=== PATIENT | male | born 1990 ===

== ENCOUNTER 2018-09-08 18:18 | Emergency (ER) | payer SELFPAY ==
--- NOTE | 2018-09-08 19:08 | XRay Report ---
CHEST 2 VIEWS INDICATION / CLINICAL INFORMATION: chest pain. COMPARISON: None available. FINDINGS: SUPPORT DEVICES: None. HEART / MEDIASTINUM: No significant abnormality. LUNGS / PLEURA: No significant pulmonary or pleural abnormality. No pneumothorax. ADDITIONAL FINDINGS: No significant additional findings. IMPRESSION: 1. No significant abnormality. Signer Name: Natasha Dobbins MD Signed: 09/08/2018 7:04 PM Workstation Name: [id number]
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
[2018-09-09 00:13] VITALS: BP 135/90
== END 2018-09-08 20:49 | disposition home or self-care (01) ==
LOC: ED 18:18
DX: R07.81 Pleurodynia (principal); R03.0 Elevated blood-pressure reading, without diagnosis of hypertension; E11.9 Type 2 diabetes mellitus without complications; M54.5 Low back pain; F17.200 Nicotine dependence, unspecified, uncomplicated; F12.10 Cannabis abuse, uncomplicated; Z79.1 Long term (current) use of non-steroidal anti-inflammatories (NSAID); Z79.899 Other long term (current) drug therapy
CPT/HCPCS: 71046

== ENCOUNTER 2020-07-11 22:37 | Emergency (ER) | payer SELFPAY ==
[2020-07-12 00:42] LABS: Basophils # (Auto) 0.1 K/mm3 (0.0-0.1); Basophils % (Auto) 0.8 % (0.0-1.8); Eosinophils # (Auto) 0.3 K/mm3 (0.0-0.4); Eosinophils % (Auto) 3.9 % (0.0-4.3); Hematocrit 41.7 % (35.5-45.6); Hemoglobin 14.4 gm/dl (11.8-15.2); Lymphocytes # (Auto) 2.7 K/mm3 (1.2-5.4); Lymphocytes % (Auto) 30.5 % (13.4-35.0); Mean Corpuscular HGB Conc 35 % (32-34); Mean Corpuscular Volume 84 fl (84-94); Monocytes # (Auto) 0.7 K/mm3 (0.0-0.8); Monocytes % (Auto) 7.6 % (0.0-7.3); Platelet Count 288 K/mm3 (140-440); Red Blood Count 4.95 M/mm3 (3.65-5.03); Red Cell Distribution Width 14.4 % (13.2-15.2)
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
--- NOTE | 2020-07-12 00:54 | XRay Report ---
CHEST 1 VIEW 0002 INDICATION / CLINICAL INFORMATION: chest pain COMPARISON: None currently available FINDINGS: SUPPORT DEVICES: None HEART / MEDIASTINUM: No significant abnormality. LUNGS / PLEURA: No significant pulmonary or pleural abnormality. No pneumothorax. ADDITIONAL FINDINGS: No significant additional findings. IMPRESSION: No significant acute abnormality Signer Name: Hossein Cowan MD Signed: 07/12/2020 12:50 AM Workstation Name: [id number]
[2020-07-12 00:58] LABS: Albumin 4.2 g/dL (3.9-5); Calcium 9.5 mg/dL (8.4-10.2)
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
[2020-07-12 13:54] LABS: Bilirubin,Urine NEG (Negative); Blood,Urine SM (Negative); Color,Urine Yellow (Yellow); Hyaline Casts,Urine 28 /LPF; Mucus,Urine 1+ /HPF
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
[2020-07-12 15:04] VITALS: BP 141/100
--- NOTE | 2020-07-14 10:30 | Electrocardiograph Report ---
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
== END 2020-07-12 15:30 | disposition home or self-care (01) ==
LOC: ED 22:37
DX: S16.1XXA Strain of muscle, fascia and tendon at neck level, initial encounter (principal); S00.83XA Contusion of other part of head, initial encounter; S09.90XA Unspecified injury of head, initial encounter; E11.40 Type 2 diabetes mellitus with diabetic neuropathy, unspecified; N28.9 Disorder of kidney and ureter, unspecified; R07.89 Other chest pain; F17.200 Nicotine dependence, unspecified, uncomplicated; E11.9 Type 2 diabetes mellitus without complications; F12.90 Cannabis use, unspecified, uncomplicated; Z79.899 Other long term (current) drug therapy; Z98.890 Other specified postprocedural states; Y08.89XA Assault by other specified means, initial encounter; Y93.89 Activity, other specified; Y92.89 Other specified places as the place of occurrence of the external cause; Y99.8 Other external cause status
CPT/HCPCS: 36415; 70450; 70486; 71045; 72125; 80053; 81001; 84484; 85025; 85379; 87086; 93005

== ENCOUNTER 2021-03-23 18:46 | Emergency (ER) | payer SELFPAY ==
--- NOTE | 2021-03-23 19:35 | Event Note ---
ED Screening Note Date of service: 03/23/21 Time: 19:32 ED Screening Note: Patient presents with fatigue, headache, body aches and chills, and right toe pain History of diabetes and amputation of the right great toe Also states history of hypertension, however he is not taking meds as prescribed This initial assessment/diagnostic orders/clinical plan/treatment(s) is/are subject to change based on patients health status, clinical progression and re- assessment by fellow clinical providers in the ED. Further treatment and workup at subsequent clinical providers discretion. Patient/guardian urged not to elope from the ED as their condition may be serious if not clinically assessed and man aged. Initial orders include: Labs
--- NOTE | 2021-03-23 20:26 | XRay Report ---
Right foot, 3 views HISTORY: History of diabetes and amputation COMPARISON: None FINDINGS: Prior amputation changes of the great toe at the proximal phalanx. The cortical margins harry ear relatively well-preserved. No aggressive cortical destruction. Mild first MTP arthritis. No acute fracture. There is soft tissue swelling of the great toe stump. No soft tissue gas. Scattered vascul ar calcifications. IMPRESSION: Prior amputation with soft tissue swelling of the great toe. No osseous destructive cordova es to suggest osteomyelitis. Signer Name: Diaz Walter MD Signed: 03/23/2021 8:22 PM Workstation Name: [id number]
[2021-03-23 21:14] LABS: Alanine Aminotransferase 20 units/L (7-56); Albumin 4.1 g/dL (3.9-5); BUN/Creatinine Ratio 13; Blood Urea Nitrogen 10 mg/dL (9-20); Hemolysis Index 15
[2021-03-23 21:35] LABS: Basophils # (Auto) 0.1 K/mm3 (0.0-0.1); Basophils % (Auto) 0.8 % (0.0-1.8); Eosinophils # (Auto) 0.1 K/mm3 (0.0-0.4); Eosinophils % (Auto) 1.3 % (0.0-4.3); Hemoglobin 12.5 gm/dl (11.8-15.2); Lymphocytes % (Auto) 27.8 % (13.4-35.0); Mean Corpuscular HGB Conc 32 % (32-34); Mean Corpuscular Volume 82 fl (84-94); Monocytes # (Auto) 0.5 K/mm3 (0.0-0.8); Platelet Count 343 K/mm3 (140-440); Red Blood Count 4.73 M/mm3 (3.65-5.03); Red Cell Distribution Width 13.9 % (13.2-15.2)
[2021-03-23] MEDS ORDERED: KETOROLAC 30 MG/1 ML INJ IV ONE (21:38)
[2021-03-23] MEDS ORDERED: SULFAMETHOXAZOLE/TRIMETHOPRIM 800/160MG DS TAB PO ONE (21:38)
[2021-03-23] MEDS ORDERED: SODIUM CHLORIDE 0.9% 1000 ML 1,000 ML IV ONE (21:38)
[2021-03-23] MEDS ORDERED: CLINDAMYCIN 300 MG CAP PO ONE (21:38)
[2021-03-23] MEDS ORDERED: ONDANSETRON 4 MG/2 ML INJ IV ONE (21:39)
--- NOTE | 2021-03-23 22:10 | XRay Report ---
CHEST 1 VIEW 03/23/2021 9:54 PM INDICATION / CLINICAL INFORMATION: cough. COMPARISON: 07/12/2020 FINDINGS: SUPPORT DEVICES: None. HEART / MEDIASTINUM: No significant abnormality. LUNGS / PLEURA: No significant pulmonary or pleural abnormality. No pneumothorax. ADDITIONAL FINDINGS: No significant additional findings. IMPRESSION: 1. No acute findings. Signer Name: Duncan Reese MD Signed: 03/23/2021 10:06 PM Workstation Name: [id number]
--- NOTE | 2021-03-23 23:52 | Vascular Lab Report ---
DUPLEX DOPPLER LOWER EXTREMITY VEINS, RIGHT INDICATION: right lower leg pain. TECHNIQUE: Duplex doppler imaging was performed through the veins of the right lower extremity using venous comp ression and other maneuvers. COMPARISON: None available. FINDINGS: Common Femoral vein: Negative. Superficial Femoral vein: Negative. Popliteal vein: Negative. Calf veins: Negative. Additional findings: None. IMPRESSION: 1. No sonographic evidence for DVT in the right lower extremity. Signer Name: Natasha Dobbins MD Signed: 03/23/2021 11:48 PM Workstation Name: [id number]
[2021-03-24] MEDS ORDERED: KETOROLAC 30 MG/1 ML INJ ONE (00:17)
[2021-03-24] MEDS ORDERED: ONDANSETRON 4 MG/2 ML INJ ONE (00:17)
[2021-03-24] MEDS ORDERED: SULFAMETHOXAZOLE/TRIMETHOPRIM 800/160MG DS TAB ONE (00:20)
[2021-03-24] MEDS ORDERED: CLINDAMYCIN 300 MG CAP ONE (00:20)
--- NOTE | 2021-03-24 04:34 | Emergency Department Report ---
ED General Adult HPI - General Chief complaint: Medical Clearance Stated complaint: FATIGUE Time Seen by Provider: 03/23/21 21:28 Source: EMS Mode of arrival: Stretcher Limitations: No Limitations - History of Present Illness Initial comments: Patient is a 30-year-old -[place] male with a history of hlw-cmeptzj-ahvzenxaz diabetes and s/p right great toe amputation, and left second toe and great toe amputation who presented to the ED with complaint of acute onset persistent body aches and pains, generalized weakness, diaphoresis, tachycardia, right great toe stump pain and swelling and right lower leg pain for over 12 hours. Patient denies dizziness, syncope, chest pain, shortness of breath, cough, nausea and vomiting or diarrhea, dysuria, urinary frequency and urgency, headache or seizures, traumatic injury or fall. MD Complaint: Generalized weakness, body aches, fatigue, headache -: Sudden, hour(s) (12) Location: chest, lower extremity (right leg and foot) Radiation: non-radiation Severity scale (0 -10): 6 Quality: dull Consistency: constant Improves with: none Worsens with: movement Associated Symptoms: denies other symptoms, loss of appetite, malaise. denies: confusion, chest pain, cough, diaphoresis, fever/chills, headaches, nausea/vomiting, rash, seizure, shortness of breath, syncope, other Treatments Prior to Arrival: none - Related Data Previous Rx's Medication Instructions Recorded Last Taken Type Acetaminophen/Codeine [Tylenol 1 tab PO Q6H PRN #7 tab 09/08/18 Unknown Rx /Codeine # 3 tab] Cyclobenzaprine [Flexeril] 10 mg PO QHS PRN #7 tablet 09/08/18 Unknown Rx Ibuprofen [Motrin 600 MG tab] 600 mg PO Q8H PRN #20 tablet 09/08/18 Unknown Rx Famotidine [Pepcid] 20 mg PO BID #20 tablet 07/12/20 Unknown Rx HYDROcodone/APAP 5-325 [Alpine 1 - 2 each PO Q6HR PRN #10 tablet 07/12/20 Unknown Rx 5/325] Sulfamethoxazole/Trimethoprim 1 each PO BID #20 tablet 07/12/20 Unknown Rx [Bactrim DS TAB] Ibuprofen [Motrin] 800 mg PO Q8HR PRN #24 tablet 03/24/21 Unknown Rx Sulfamethoxazole/Trimethoprim 1 each PO Q12H #20 tab 03/24/21 Unknown Rx [Bactrim DS TAB] Allergies Allergy/AdvReac Type Severity Reaction Status Date / Time No Known Allergies Allergy Verified 09/08/18 18:27 ED Review of Systems ROS: Stated complaint: FATIGUE Other details as noted in HPI Constitutional: malaise, weakness. denies: chills, fever Eyes: denies: eye pain, eye discharge, vision change ENT: denies: ear pain, throat pain Respiratory: denies: cough, shortness of breath, wheezing Cardiovascular: denies: chest pain, palpitations Endocrine: no symptoms reported Gastrointestinal: denies: abdominal pain, nausea, vomiting, diarrhea Genitourinary: denies: urgency, dysuria Musculoskeletal: joint swelling, arthralgia (right leg pain; right great toe stump pain and swelling), myalgia. denies: back pain Skin: denies: rash, lesions Neurological: denies: headache, weakness, paresthesias Psychiatric: denies: anxiety, depression Hematological/Lymphatic: denies: easy bleeding, easy bruising ED Past Medical Hx - Past Medical History Hx Diabetes: Yes - Surgical History Additional Surgical History: partial amputation on both feet - Social History Smoking Status: Current Every Day Smoker (1/2 pack/day) Substance Use Type: Alcohol (Occasional), Marijuana - Medications Home Medications: Home Medications Medication Instructions Recorded Confirmed Last Taken Type Acetaminophen/Codeine [Tylenol 1 tab PO Q6H PRN #7 tab 09/08/18 Unknown Rx /Codeine # 3 tab] Cyclobenzaprine [Flexeril] 10 mg PO QHS PRN #7 tablet 09/08/18 Unknown Rx Ibuprofen [Motrin 600 MG tab] 600 mg PO Q8H PRN #20 tablet 09/08/18 Unknown Rx Famotidine [Pepcid] 20 mg PO BID #20 tablet 07/12/20 Unknown Rx HYDROcodone/APAP 5-325 [Alpine 1 - 2 each PO Q6HR PRN #10 tablet 07/12/20 Unknown Rx 5/325] Sulfamethoxazole/Trimethoprim 1 each PO BID #20 tablet 07/12/20 Unknown Rx [Bactrim DS TAB] Ibuprofen [Motrin] 800 mg PO Q8HR PRN #24 tablet 03/24/21 Unknown Rx Sulfamethoxazole/Trimethoprim 1 each PO Q12H #20 tab 03/24/21 Unknown Rx [Bactrim DS TAB] ED Physical Exam - General Limitations: No Limitations General appearance: alert, in no apparent distress - Head Head exam: Present: atraumatic, normocephalic, normal inspection - Eye Eye exam: Present: normal appearance, PERRL, EOMI Pupils: Present: normal accommodation - ENT ENT exam: Present: normal exam, normal orophraynx, mucous membranes moist, TM's normal bilaterally, normal external ear exam - Neck Neck exam: Present: normal inspection, full ROM - Respiratory Respiratory exam: Present: normal lung sounds bilaterally. Absent: respiratory distress, wheezes, rales, rhonchi, chest wall tenderness, accessory muscle use, decreased breath sounds, other - Cardiovascular Cardiovascular Exam: Present: normal rhythm, tachycardia, normal heart sounds. Absent: systolic murmur, diastolic murmur, rubs, gallop - GI/Abdominal GI/Abdominal exam: Present: soft, normal bowel sounds. Absent: tenderness, guarding, rebound, hyperactive bowel sounds, hypoactive bowel sounds - Extremities Exam Extremities exam: Present: normal inspection, full ROM, tenderness (Palpable localized right great toe stump tenderness and mild swelling), normal capillary refill, joint swelling - Back Exam Back exam: Present: normal inspection, full ROM. Absent: tenderness, CVA tenderness (R), CVA tenderness (L), muscle spasm, paraspinal tenderness, vertebral tenderness - Neurological Exam Neurological exam: Present: alert, oriented X3, CN II-XII intact, normal gait, reflexes normal - Psychiatric Psychiatric exam: Present: normal affect, normal mood, anxious - Skin Skin exam: Present: warm, dry, intact, normal color. Absent: rash ED Course Vital Signs 03/23/21 03/24/21 18:46 00:26 Temperature 98.7 F Pulse Rate 120 H Respiratory 18 14 Rate Blood Pressure 178/96 [Left] O2 Sat by Pulse 100 Oximetry ED Medical Decision Making - Lab Data Result diagrams: 03/23/21 20:31 03/23/21 20:31 - Radiology Data Radiology results: report reviewed, image reviewed [facility] [address] [place] [address] Vascular Lab Report Signed Patient: LATISHA MARCANO MR#: [id number] : 1990 Acct:[id number] Age/Sex: 30 / M ADM Date: 03/23/21 Loc: ED Attending Dr: Ordering Physician: BOAZ CLAYTON Date of Service: 03/23/21 Procedure(s): VL venous duplex LE RT Accession Number(s): [id number] cc: BOAZ CLAYTON DUPLEX DOPPLER LOWER EXTREMITY VEINS, RIGHT INDICATION: right lower leg pain. TECHNIQUE: Duplex doppler imaging was performed through the veins of the right lower extremity using venous compression and other maneuvers. COMPARISON: None available. FINDINGS: Common Femoral vein: Negative. Superficial Femoral vein: Negative. Popliteal vein: Negative. Calf veins: Negative. Additional findings: None. IMPRESSION: 1. No sonographic evidence for DVT in the right lower extremity. Signer Name: Natasha Dobbins MD Signed: 03/23/2021 11:48 PM Workstation Name: [email or web address] Transcribed By: JR Dictated By: Natasha Dobbins MD Electronically Authenticated By: Natasha Dobbins MD Signed Date/Time: 03/23/212347 DD/ 46 TD/TT: [facility] [address] [place] [address] XRay Report Signed Patient: LATISHA MARCANO MR#: [id number] : 1990 Acct:[id number] Age/Sex: 30 / M ADM Date: 03/23/21 Loc: ED Attending Dr: Ordering Physician: BOAZ CLAYTON Date of Service: 03/23/21 Procedure(s): XR chest 1V ap Accession Number(s): [id number] cc: BOAZ CLAYTON Fluoro Time In Minutes: CHEST 1 VIEW 03/23/2021 9:54 PM INDICATION / CLINICAL INFORMATION: cough. COMPARISON: 07/12/2020 FINDINGS: SUPPORT DEVICES: None. HEART / MEDIASTINUM: No significant abnormality. LUNGS / PLEURA: No significant pulmonary or pleural abnormality. No pneumothorax. ADDITIONAL FINDINGS: No significant additional findings. IMPRESSION: 1. No acute findings. Signer Name: Duncan Reese MD Signed: 03/23/2021 10:06 PM Workstation Name: [email or web address] Transcribed By: DB Dictated By: DUNCAN REESE MD Electronically Authenticated By: DUNCAN REESE MD Signed Date/Time: 03/23/212205 DD/ 04 TD/TT: [facility] [address] [place] [address] XRay Report Signed Patient: LATISHA MARCANO MR#: [id number] : 1990 Acct:[id number] Age/Sex: 30 / M ADM Date: 03/23/21 Loc: ED Attending Dr: Ordering Physician: TOAN GONZALEZ Date of Service: 03/23/21 Procedure(s): XR foot 3+V RT Accession Number(s): [id number] cc: TOAN GONZALEZ Fluoro Time In Minutes: Right foot, 3 views HISTORY: History of diabetes and amputation COMPARISON: None FINDINGS: Prior amputation changes of the great toe at the proximal phalanx. The cortical margins appear relatively well-preserved. No aggressive cortical destruction. Mild first MTP arthritis. No acute fracture. There is soft tissue swelling of the great toe stump. No soft tissue gas. Scattered vascular calcifications. IMPRESSION: Prior amputation with soft tissue swelling of the great toe. No osseous destructive changes to suggest osteomyelitis. Signer Name: Sharath Walter MD Signed: 03/23/2021 8:22 PM Workstation Name: [id number] Transcribed By: GADIEL Dictated By: SHARATH WALTER MD Electronically Authenticated By: SHARATH WALTER MD Signed Date/Time: 03/23/212021 DD/ 18 TD/TT: Print - Medical Decision Making This is a 30-year-old -[place] male with a history of bsb-lyjofzf-cyiklfyyl diabetes and s/p right great toe amputation, and left second toe and great toe amputation who presented to the ED with complaint of acute onset persistent body aches and pains, generalized weakness, diaphoresis, tachycardia, right great toe stump pain and swelling and right lower leg pain for over 12 hours. In the ED, patient is alert and oriented x3 and is not in any distress. Patient was treated for pain in the ED. All lab test results were reviewed and are all nonactionable. Right foot x-ray showed no acute fractures or subluxations but a right great toe s/p partial amputation with soft tissue swelling around it with no sign of osteomyelitis. Right lower leg Doppler ultrasound showed no sonographic evidence of DVT. Chest x-ray showed no acute cardiopulmonary abnormalities or pneumonitis. Patient also received oral antibiotics for suspected cellulitis of the right great toe stump. Patient was therefore discharged home on medications and advised to follow-up with his primary care physician in 7 to 10 days for reevaluation or return to the ED immediately if symptoms get worse. - Differential Diagnosis Cellulitis; osteomyelitis; pneumonia; COVID-19; anxiety Critical care attestation.: If time is entered above; I have spent that time in minutes in the direct care of this critically ill patient, excluding procedure time. ED Disposition Clinical Impression: Cellulitis of great toe of right foot, Generalized weakness, Anxiety as acute reaction to exceptional stress Disposition: HOME / SELF CARE / HOMELESS Is pt being admited?: No Does the pt Need Aspirin: No Condition: Stable Instructions: Cellulitis, Adult, Yfef-cu-Hxdt, Weakness, Uete-dh-Prxd Additional Instructions: The right foot x-ray showed no sign of bone infection but swelling on the right great toe stump. Right lower leg ultrasound showed no evidence of blood clot or DVT. Chest x-ray showed no acute cardiopulmonary abnormalities or pneumonitis. All lab test results were reviewed and are all nonactionable. Therefore take medication with food, drink plenty of fluids and follow-up with your primary care physician in 7 to 10 days for reevaluation. Return to the ED immediately if symptoms get worse. Prescriptions: Sulfamethoxazole/Trimethoprim [Bactrim DS TAB] 1 each PO Q12H #20 tab Ibuprofen [Motrin] 800 mg PO Q8HR PRN #24 tablet PRN Reason: Pain , Severe (7-10) Referrals: [facility] [Provider Group] - 7-10 days Time of Disposition: 04:39 Print Language: QATARI
[2021-03-24 05:45] VITALS: BP 150/90
--- NOTE | 2021-03-26 14:27 | Electrocardiograph Report ---
[facility] Test Date: 2021-03-23 Test Time: 19:42:40 Pat Name: LATISHA MARCANO Department: Room: Gender: M [employer] Management Specialist: JANET : 1990 Requested By: DARIEL PIERCE Order Number: [id number] Reading MD: Chrissy Parra Measurements Intervals [place] Rate: 114 P: 80 CO: 127 QRS: 57 QRSD: 80 T: 15 QT: 309 QTc: 425 Interpretive Statements Sinus tachycardia Compared to ECG 07/12/2020 14:51:51 Sinus rate has increased Electronically Signed On 03-26-2021 14:26:55 EST by Chrissy Parra
== END 2021-03-24 05:44 | disposition home or self-care (01) ==
LOC: ED 18:46
DX: L03.031 Cellulitis of right toe (principal); M62.81 Muscle weakness (generalized); F43.0 Acute stress reaction; F17.200 Nicotine dependence, unspecified, uncomplicated; F10.20 Alcohol dependence, uncomplicated; F12.90 Cannabis use, unspecified, uncomplicated; E11.8 Type 2 diabetes mellitus with unspecified complications
CPT/HCPCS: 36415; 71045; 73630; 80053; 82805; 84484; 85025; 93005; 93971; 96361; 96374; 96375; 99284; J1885; J2405; J7030; Q0162